=== PATIENT | male | born 2000 | race Caucasian/White ===

== ENCOUNTER 2020-08-29 11:48 | Emergency (ER) | payer OTHER ==
[2020-08-29] MEDS ORDERED: Acetaminophen/Codeine 30-300mg Tablet ONE (12:49)
== END 2020-08-29 14:13 | disposition home or self-care (01) ==
LOC: ERS 11:48
DX: S01.411A Laceration without foreign body of right cheek and temporomandibular area, initial encounter (principal); S93.602A Unspecified sprain of left foot, initial encounter; S93.402A Sprain of unspecified ligament of left ankle, initial encounter; Z87.891 Personal history of nicotine dependence; Y04.0XXA Assault by unarmed brawl or fight, initial encounter; Y92.149 Unspecified place in prison as the place of occurrence of the external cause
CPT/HCPCS: 70450; 72125